=== PATIENT | female | born 1945 | race African-American/Black ===

== ENCOUNTER 2021-05-30 17:09 | Inpatient (IN) | payer OTHER ==
[2021-05-30 20:01] VITALS: TEMP 96.8; BMI 20.6
[2021-05-30] MEDS ORDERED: hydrOXYzine PAMOATE 25 MG CAPSULE (FP) PO PRN (21:36)
[2021-05-30] MEDS ORDERED: MAG HYDROX/AL HYDROX/SIMETH 30 ML UNIT-DOSE CUP PO PRN (21:36)
[2021-05-30] MEDS ORDERED: NICOTINE 10 MG CARTRIDGE (INHALER) IH PRN (21:36)
[2021-05-30] MEDS ORDERED: MAGNESIUM CITRATE 300 ML BOTTLE PO PRN (21:36)
[2021-05-30] MEDS ORDERED: MENTHOL/PHENOL 1 EACH UD MM PRN (21:36)
[2021-05-30] MEDS ORDERED: DICYCLOMINE HCL 10 MG CAPSULE PO PRN (21:36)
[2021-05-30] MEDS ORDERED: ACETAMINOPHEN 325 MG TABLET (FP) PO PRN ×2 (21:36)
[2021-05-30] MEDS ORDERED: MAGNESIUM HYDROX 2400MG/30ML ORAL SUSPENSION 30 ML CUP PO PRN (21:36)
[2021-05-30] MEDS ORDERED: ONDANSETRON *ODT* 4 MG TABLET SL PRN (21:36)
[2021-05-30] MEDS ORDERED: P-EPHED 60MG/TRIPROLIDI 2.5MG TABLET PO PRN (21:36)
[2021-05-30] MEDS ORDERED: METHOCARBAMOL 500 MG TABLET PO PRN (21:36)
[2021-05-30] MEDS ORDERED: guaiFENesin 200 MG/10 ML 10 ML UNIT-DOSE CUPS PO PRN (21:36)
[2021-05-30] MEDS ORDERED: THIAMINE HCL 100 MG TABLET (FP) PO SCH (22:00)
[2021-05-30] MEDS ORDERED: MELATONIN 5 MG TABLETS PO SCH (22:00)
[2021-05-30] MEDS ORDERED: ALBUTEROL SO4 HFA INHALER IH PRN (23:59)
[2021-05-31 09:33] VITALS: BP 92/66; PULSE 96
[2021-05-31] MEDS ORDERED: NICOTINE 21 MG/24 HOURS TOPICAL PATCH TD SCH (10:00)
[2021-05-31] MEDS ORDERED: PRENATAL VITAMINS W/ FOLIC ACID TABLET (FP) PO SCH (10:00)
[2021-05-31 13:58] LABS: HEMATOCRIT 38.9 % (32.4-45.2); HEMOGLOBIN 13.2 GM/dL (10.7-15.3); MCH 28.7 pg (25.7-33.7); MCHC 33.9 g/dl (32.0-36.0); MEAN CELL VOLUME 84.5 fl (80-96); PLATELET COUNT 181 10^3/uL (134-434); RBC 4.61 M/mm3 (3.60-5.2); RDW 14.8 % (11.6-15.6); WHITE BLOOD COUNT 4.8 K/mm3 (4.0-10.0)
[2021-05-31 14:10] LABS: ALBUMIN 3.5 g/dl (3.4-5.0)
[2021-05-31 14:12] LABS: CALCIUM 9.1 mg/dL (8.5-10.1)
[2021-05-31 14:13] LABS: BLOOD UREA NITROGEN 16.6 mg/dL (7-18)
[2021-05-31 14:17] LABS: BILIRUBIN,TOTAL 0.5 mg/dL (0.2-1); CREATININE 1.5 mg/dL (0.55-1.3); TOT PROT 7.9 g/dl (6.4-8.2)
[2021-05-31] MEDS ORDERED: BICTEGRAV/EMTRICIT/TENOFOV (BIKTARVY) 50-200-25 MG TABLET PO SCH (22:00)
[2021-05-31] MEDS ORDERED: QUEtiapine FUMARATE 100 MG TABLET (FP) PO SCH (22:00)
[2021-05-31] MEDS ORDERED: MIRTAZAPINE 15 MG TABLET (FP) PO SCH (22:00)
== END 2021-05-31 12:14 | disposition other institution (70) | DRG 897 ==
LOC: YASAS 17:09 → Y3N 21:52
PROVIDERS: ADMIT Allergy & Immunology; ATTEND Allergy & Immunology
PROC: HZ2ZZZZ Detoxification Services for Substance Abuse Treatment (ICD-10-PCS; principal; 2021-05-30)
DX: F10.230 Alcohol dependence with withdrawal, uncomplicated (principal); F14.20 Cocaine dependence, uncomplicated; B20 Human immunodeficiency virus [HIV] disease; F17.210 Nicotine dependence, cigarettes, uncomplicated; J44.9 Chronic obstructive pulmonary disease, unspecified; L30.9 Dermatitis, unspecified; G47.00 Insomnia, unspecified; M54.30 Sciatica, unspecified side; Z88.6 Allergy status to analgesic agent; Z86.11 Personal history of tuberculosis; Z56.0 Unemployment, unspecified
CPT/HCPCS: 36415; 80053; 85027; 86593; 86780; C9803; U0003; U0005

== ENCOUNTER 2021-05-31 12:46 | Inpatient (IN) | payer OTHER ==
[2021-05-31] MEDS ORDERED: LOPERAMIDE HCL 2 MG CAPSULE PO PRN (15:13)
[2021-05-31] MEDS ORDERED: guaiFENesin 200 MG/10 ML 10 ML UNIT-DOSE CUPS PO PRN (15:13)
[2021-05-31] MEDS ORDERED: MENTHOL/PHENOL 1 EACH UD MM PRN (15:13)
[2021-05-31] MEDS ORDERED: MAGNESIUM CITRATE 300 ML BOTTLE PO PRN (15:13)
[2021-05-31] MEDS ORDERED: ACETAMINOPHEN 325 MG TABLET (FP) PO PRN (15:13)
[2021-05-31] MEDS ORDERED: P-EPHED 60MG/TRIPROLIDI 2.5MG TABLET PO PRN (15:13)
[2021-05-31] MEDS ORDERED: MAG HYDROX/AL HYDROX/SIMETH 30 ML UNIT-DOSE CUP PO PRN (15:13)
[2021-05-31] MEDS: MELATONIN 5 MG TABLETS PO SCH (22:14)
[2021-05-31] MEDS: QUEtiapine FUMARATE 100 MG TABLET (FP) PO SCH (22:14)
[2021-05-31] MEDS: MIRTAZAPINE 15 MG TABLET (FP) PO SCH (22:14)
[2021-05-31] MEDS: BICTEGRAV/EMTRICIT/TENOFOV (BIKTARVY) 50-200-25 MG TABLET PO SCH (22:14)
[2021-05-31] MEDS: THIAMINE HCL 100 MG TABLET (FP) PO SCH (22:14)
[2021-06-01] MEDS: ALBUTEROL SO4 HFA INHALER IH PRN ×2 (10:28→21:51)
[2021-06-01] MEDS: PRENATAL VITAMINS W/ FOLIC ACID TABLET (FP) PO SCH (10:29)
[2021-06-01] MEDS ORDERED: PNEUMOC 13-VAL CONJ-DIP CRM/PF 0.5 ML DISP.SYRIN IM ONE (12:00)
[2021-06-01] MEDS: MAGNESIUM HYDROX 2400MG/30ML ORAL SUSPENSION 30 ML CUP PO PRN (18:17)
[2021-06-01 20:17] LABS: URINE APPEARANCE Clear; URINE BILIRUBIN Negative (NEGATIVE); URINE COLOR Yellow; URINE GLUCOSE (UA) Negative (NEGATIVE); URINE KETONE Negative (NEGATIVE); URINE LEUK ESTERASE 1+ (NEGATIVE); URINE NITRITE Negative (NEGATIVE); URINE PROTEIN Negative (NEGATIVE)
[2021-06-01] MEDS: QUEtiapine FUMARATE 100 MG TABLET (FP) PO SCH (21:52)
[2021-06-01] MEDS: MIRTAZAPINE 15 MG TABLET (FP) PO SCH (21:52)
[2021-06-01] MEDS: MELATONIN 5 MG TABLETS PO SCH (21:52)
[2021-06-01] MEDS: BICTEGRAV/EMTRICIT/TENOFOV (BIKTARVY) 50-200-25 MG TABLET PO SCH (21:52)
[2021-06-01] MEDS: THIAMINE HCL 100 MG TABLET (FP) PO SCH (21:52)
[2021-06-02] MEDS: ALBUTEROL SO4 HFA INHALER IH PRN ×2 (10:08→21:17)
[2021-06-02] MEDS: PRENATAL VITAMINS W/ FOLIC ACID TABLET (FP) PO SCH (10:08)
[2021-06-02] MEDS: MELATONIN 5 MG TABLETS PO SCH (21:15)
[2021-06-02] MEDS: MIRTAZAPINE 15 MG TABLET (FP) PO SCH (21:16)
[2021-06-02] MEDS: QUEtiapine FUMARATE 300 MG TABLET PO SCH (21:16)
[2021-06-02] MEDS: BICTEGRAV/EMTRICIT/TENOFOV (BIKTARVY) 50-200-25 MG TABLET PO SCH (21:17)
[2021-06-02] MEDS: THIAMINE HCL 100 MG TABLET (FP) PO SCH (21:17)
[2021-06-03] MEDS: PRENATAL VITAMINS W/ FOLIC ACID TABLET (FP) PO SCH (10:34)
[2021-06-03] MEDS: ALBUTEROL SO4 HFA INHALER IH PRN (10:34)
[2021-06-03] MEDS ORDERED: NICOTINE 10 MG CARTRIDGE (INHALER) IH PRN (13:57)
[2021-06-03] MEDS: MAGNESIUM HYDROX 2400MG/30ML ORAL SUSPENSION 30 ML CUP PO PRN (14:38)
[2021-06-03] MEDS: NICOTINE 7 MG/24 HOURS TOPICAL PATCH TD SCH (17:10)
[2021-06-03] MEDS: THIAMINE HCL 100 MG TABLET (FP) PO SCH (21:53)
[2021-06-03] MEDS: MIRTAZAPINE 15 MG TABLET (FP) PO SCH (21:53)
[2021-06-03] MEDS: BICTEGRAV/EMTRICIT/TENOFOV (BIKTARVY) 50-200-25 MG TABLET PO SCH (21:53)
[2021-06-03] MEDS: QUEtiapine FUMARATE 300 MG TABLET PO SCH (21:53)
[2021-06-03] MEDS: MELATONIN 5 MG TABLETS PO SCH (21:53)
[2021-06-03] MEDS: MICONAZOLE NITRATE 2% VAGINAL CREAM 45 GM TUBE VG SCH (21:54)
[2021-06-04] MEDS: PRENATAL VITAMINS W/ FOLIC ACID TABLET (FP) PO SCH (10:20)
[2021-06-04] MEDS: NICOTINE 7 MG/24 HOURS TOPICAL PATCH TD SCH (10:20)
[2021-06-04] MEDS: QUEtiapine FUMARATE 300 MG TABLET PO SCH (21:50)
[2021-06-04] MEDS: MIRTAZAPINE 15 MG TABLET (FP) PO SCH (21:50)
[2021-06-04] MEDS: THIAMINE HCL 100 MG TABLET (FP) PO SCH (21:50)
[2021-06-04] MEDS: MELATONIN 5 MG TABLETS PO SCH (21:50)
[2021-06-04] MEDS: BICTEGRAV/EMTRICIT/TENOFOV (BIKTARVY) 50-200-25 MG TABLET PO SCH (21:51)
[2021-06-04] MEDS: MICONAZOLE NITRATE 2% VAGINAL CREAM 45 GM TUBE VG SCH (21:51)
[2021-06-05] MEDS: NICOTINE 7 MG/24 HOURS TOPICAL PATCH TD SCH (10:20)
[2021-06-05] MEDS: PRENATAL VITAMINS W/ FOLIC ACID TABLET (FP) PO SCH (10:20)
[2021-06-05] MEDS: MICONAZOLE NITRATE 2% VAGINAL CREAM 45 GM TUBE VG SCH (21:19)
[2021-06-05] MEDS: QUEtiapine FUMARATE 300 MG TABLET PO SCH (21:20)
[2021-06-05] MEDS: MELATONIN 5 MG TABLETS PO SCH (21:20)
[2021-06-05] MEDS: THIAMINE HCL 100 MG TABLET (FP) PO SCH (21:20)
[2021-06-05] MEDS: MIRTAZAPINE 15 MG TABLET (FP) PO SCH (21:20)
[2021-06-05] MEDS: BICTEGRAV/EMTRICIT/TENOFOV (BIKTARVY) 50-200-25 MG TABLET PO SCH (21:21)
[2021-06-06] MEDS: PRENATAL VITAMINS W/ FOLIC ACID TABLET (FP) PO SCH (10:25)
[2021-06-06] MEDS: NICOTINE 7 MG/24 HOURS TOPICAL PATCH TD SCH (10:25)
[2021-06-06] MEDS ORDERED: COLLOIDAL OATMEAL 1 BAR EACH TP PRN (12:09)
[2021-06-06] MEDS: MINERAL OIL/PETROLAT/WATER TOPICAL CREAM 113 GM JAR TP SCH (13:45)
[2021-06-06] MEDS: QUEtiapine FUMARATE 300 MG TABLET PO SCH (21:08)
[2021-06-06] MEDS: MELATONIN 5 MG TABLETS PO SCH (21:08)
[2021-06-06] MEDS: MIRTAZAPINE 15 MG TABLET (FP) PO SCH (21:08)
[2021-06-06] MEDS: THIAMINE HCL 100 MG TABLET (FP) PO SCH (21:08)
[2021-06-06] MEDS: MICONAZOLE NITRATE 2% VAGINAL CREAM 45 GM TUBE VG SCH (21:09)
[2021-06-06] MEDS: BICTEGRAV/EMTRICIT/TENOFOV (BIKTARVY) 50-200-25 MG TABLET PO SCH (21:09)
[2021-06-07] MEDS: NICOTINE 7 MG/24 HOURS TOPICAL PATCH TD SCH (10:34)
[2021-06-07] MEDS: PRENATAL VITAMINS W/ FOLIC ACID TABLET (FP) PO SCH (10:34)
[2021-06-07] MEDS: MINERAL OIL/PETROLAT/WATER TOPICAL CREAM 113 GM JAR TP SCH (10:35)
[2021-06-07] MEDS: MELATONIN 5 MG TABLETS PO SCH (21:53)
[2021-06-07] MEDS: BICTEGRAV/EMTRICIT/TENOFOV (BIKTARVY) 50-200-25 MG TABLET PO SCH (21:53)
[2021-06-07] MEDS: QUEtiapine FUMARATE 300 MG TABLET PO SCH (21:54)
[2021-06-07] MEDS: MIRTAZAPINE 15 MG TABLET (FP) PO SCH (21:54)
[2021-06-07] MEDS: THIAMINE HCL 100 MG TABLET (FP) PO SCH (21:54)
[2021-06-07] MEDS: MICONAZOLE NITRATE 2% VAGINAL CREAM 45 GM TUBE VG SCH (21:54)
[2021-06-08] MEDS: MINERAL OIL/PETROLAT/WATER TOPICAL CREAM 113 GM JAR TP SCH (10:25)
[2021-06-08] MEDS: PRENATAL VITAMINS W/ FOLIC ACID TABLET (FP) PO SCH (10:26)
[2021-06-08] MEDS: NICOTINE 7 MG/24 HOURS TOPICAL PATCH TD SCH (10:26)
[2021-06-08] MEDS: TOLNAFTATE 1% POWDER 45 GM POW TP SCH ×2 (14:59→21:17)
[2021-06-08] MEDS ORDERED: HYDROCORTISONE 1% TOPICAL CREAM 30 GM TUBE TP PRN (15:54)
[2021-06-08] MEDS: THIAMINE HCL 100 MG TABLET (FP) PO SCH (21:16)
[2021-06-08] MEDS: MIRTAZAPINE 15 MG TABLET (FP) PO SCH (21:16)
[2021-06-08] MEDS: MELATONIN 5 MG TABLETS PO SCH (21:16)
[2021-06-08] MEDS: BICTEGRAV/EMTRICIT/TENOFOV (BIKTARVY) 50-200-25 MG TABLET PO SCH (21:16)
[2021-06-08] MEDS: QUEtiapine FUMARATE 300 MG TABLET PO SCH (21:16)
[2021-06-08] MEDS: MICONAZOLE NITRATE 2% VAGINAL CREAM 45 GM TUBE VG SCH (21:18)
[2021-06-09] MEDS: NICOTINE 7 MG/24 HOURS TOPICAL PATCH TD SCH (10:35)
[2021-06-09] MEDS: PRENATAL VITAMINS W/ FOLIC ACID TABLET (FP) PO SCH (10:35)
[2021-06-09] MEDS: ALBUTEROL SO4 HFA INHALER IH PRN (10:36)
[2021-06-09] MEDS: MINERAL OIL/PETROLAT/WATER TOPICAL CREAM 113 GM JAR TP SCH (10:36)
[2021-06-09] MEDS: TOLNAFTATE 1% POWDER 45 GM POW TP SCH ×2 (10:37→22:34)
[2021-06-09] MEDS: MAGNESIUM HYDROX 2400MG/30ML ORAL SUSPENSION 30 ML CUP PO PRN (10:38)
[2021-06-09] MEDS: MICONAZOLE NITRATE 2% VAGINAL CREAM 45 GM TUBE VG SCH (22:34)
[2021-06-09] MEDS: MIRTAZAPINE 15 MG TABLET (FP) PO SCH (22:34)
[2021-06-09] MEDS: BICTEGRAV/EMTRICIT/TENOFOV (BIKTARVY) 50-200-25 MG TABLET PO SCH (22:34)
[2021-06-09] MEDS: QUEtiapine FUMARATE 300 MG TABLET PO SCH (22:34)
[2021-06-09] MEDS: THIAMINE HCL 100 MG TABLET (FP) PO SCH (22:36)
[2021-06-09] MEDS: MELATONIN 5 MG TABLETS PO SCH (22:39)
[2021-06-10] MEDS: PRENATAL VITAMINS W/ FOLIC ACID TABLET (FP) PO SCH (10:14)
[2021-06-10] MEDS: NICOTINE 7 MG/24 HOURS TOPICAL PATCH TD SCH (10:14)
[2021-06-10] MEDS: TOLNAFTATE 1% POWDER 45 GM POW TP SCH ×2 (10:15→21:59)
[2021-06-10] MEDS: MINERAL OIL/PETROLAT/WATER TOPICAL CREAM 113 GM JAR TP SCH (10:15)
[2021-06-10] MEDS: MELATONIN 5 MG TABLETS PO SCH (21:56)
[2021-06-10] MEDS: BICTEGRAV/EMTRICIT/TENOFOV (BIKTARVY) 50-200-25 MG TABLET PO SCH (21:56)
[2021-06-10] MEDS: QUEtiapine FUMARATE 300 MG TABLET PO SCH (21:56)
[2021-06-10] MEDS: MIRTAZAPINE 15 MG TABLET (FP) PO SCH (21:56)
[2021-06-10] MEDS: THIAMINE HCL 100 MG TABLET (FP) PO SCH (21:57)
[2021-06-11] MEDS: NICOTINE 7 MG/24 HOURS TOPICAL PATCH TD SCH (10:26)
[2021-06-11] MEDS: PRENATAL VITAMINS W/ FOLIC ACID TABLET (FP) PO SCH (10:26)
[2021-06-11] MEDS: TOLNAFTATE 1% POWDER 45 GM POW TP SCH ×2 (10:27→22:04)
[2021-06-11] MEDS: MINERAL OIL/PETROLAT/WATER TOPICAL CREAM 113 GM JAR TP SCH (10:27)
[2021-06-11] MEDS: MIRTAZAPINE 15 MG TABLET (FP) PO SCH (22:00)
[2021-06-11] MEDS: BICTEGRAV/EMTRICIT/TENOFOV (BIKTARVY) 50-200-25 MG TABLET PO SCH (22:00)
[2021-06-11] MEDS: QUEtiapine FUMARATE 300 MG TABLET PO SCH (22:01)
[2021-06-11] MEDS: MELATONIN 5 MG TABLETS PO SCH (22:01)
[2021-06-11] MEDS: THIAMINE HCL 100 MG TABLET (FP) PO SCH (22:03)
[2021-06-12] MEDS: NICOTINE 7 MG/24 HOURS TOPICAL PATCH TD SCH (10:37)
[2021-06-12] MEDS: TOLNAFTATE 1% POWDER 45 GM POW TP SCH ×2 (10:37→22:13)
[2021-06-12] MEDS: PRENATAL VITAMINS W/ FOLIC ACID TABLET (FP) PO SCH (10:37)
[2021-06-12] MEDS: MINERAL OIL/PETROLAT/WATER TOPICAL CREAM 113 GM JAR TP SCH (10:38)
[2021-06-12] MEDS: QUEtiapine FUMARATE 300 MG TABLET PO SCH (22:12)
[2021-06-12] MEDS: THIAMINE HCL 100 MG TABLET (FP) PO SCH (22:12)
[2021-06-12] MEDS: MELATONIN 5 MG TABLETS PO SCH (22:12)
[2021-06-12] MEDS: MIRTAZAPINE 15 MG TABLET (FP) PO SCH (22:12)
[2021-06-12] MEDS: BICTEGRAV/EMTRICIT/TENOFOV (BIKTARVY) 50-200-25 MG TABLET PO SCH (22:13)
[2021-06-13] MEDS: NICOTINE 7 MG/24 HOURS TOPICAL PATCH TD SCH (10:37)
[2021-06-13] MEDS: PRENATAL VITAMINS W/ FOLIC ACID TABLET (FP) PO SCH (10:37)
[2021-06-13] MEDS: TOLNAFTATE 1% POWDER 45 GM POW TP SCH ×2 (10:37→21:22)
[2021-06-13] MEDS: MINERAL OIL/PETROLAT/WATER TOPICAL CREAM 113 GM JAR TP SCH (10:38)
[2021-06-13] MEDS: MIRTAZAPINE 15 MG TABLET (FP) PO SCH (21:20)
[2021-06-13] MEDS: QUEtiapine FUMARATE 300 MG TABLET PO SCH (21:21)
[2021-06-13] MEDS: THIAMINE HCL 100 MG TABLET (FP) PO SCH (21:21)
[2021-06-13] MEDS: BICTEGRAV/EMTRICIT/TENOFOV (BIKTARVY) 50-200-25 MG TABLET PO SCH (21:21)
[2021-06-13] MEDS: MELATONIN 5 MG TABLETS PO SCH (21:21)
[2021-06-14 07:24] VITALS: BP 128/86; PULSE 96; TEMP 97.1
[2021-06-14] MEDS: PRENATAL VITAMINS W/ FOLIC ACID TABLET (FP) PO SCH (09:24)
[2021-06-14] MEDS: MINERAL OIL/PETROLAT/WATER TOPICAL CREAM 113 GM JAR TP SCH (09:24)
[2021-06-14] MEDS: NICOTINE 7 MG/24 HOURS TOPICAL PATCH TD SCH (09:24)
[2021-06-14] MEDS: TOLNAFTATE 1% POWDER 45 GM POW TP SCH (09:24)
== END 2021-06-14 09:50 | disposition home or self-care (01) | DRG 895 ==
LOC: YASAS 12:46 → Y5N 12:47
PROVIDERS: ADMIT Allergy & Immunology; ATTEND Allergy & Immunology
PROC: HZ42ZZZ Group Counseling for Substance Abuse Treatment, Cognitive-Behavioral (ICD-10-PCS; principal; 2021-05-31)
DX: F10.20 Alcohol dependence, uncomplicated (principal); F14.20 Cocaine dependence, uncomplicated; F17.210 Nicotine dependence, cigarettes, uncomplicated; F41.9 Anxiety disorder, unspecified; Z21 Asymptomatic human immunodeficiency virus [HIV] infection status; J44.9 Chronic obstructive pulmonary disease, unspecified; G47.00 Insomnia, unspecified; L30.9 Dermatitis, unspecified; L29.2 Pruritus vulvae; M54.30 Sciatica, unspecified side; Z99.89 Dependence on other enabling machines and devices; Z86.59 Personal history of other mental and behavioral disorders; Z88.6 Allergy status to analgesic agent
CPT/HCPCS: 81003; 87086; 90670